=== PATIENT | female | born 1995 | race Caucasian/White ===

== ENCOUNTER 2025-06-02 09:48 | Outpatient (CLI) | payer OTHER ==
[2025-06-02 11:18] LABS: BASO % 0.2 % (0.1-1.2); EOS # 0.17 (0.04-0.54); EOS % 3.4 % (0.7-7.0); LYMPH # 1.55 (1.18-3.74); LYMPH % 31.3 % (19.3-53.1); MEAN PLATELET VOLUME 10.00 fl (9.4-12.4); MONO # 0.34 (0.24-0.82); MONO % 6.9 % (4.7-12.5); NEUT # 2.89 (1.56-6.13); NEUT % 58.2 % (34.0-71.1); RED CELL DISTRIBUTION WIDTH 12.6 % (11.6-14.4)
[2025-06-02 11:59] LABS: URINE APPEARANCE Clear; URINE BILIRRUBIN Negative (NEGATIVE); URINE BLOOD Negative; URINE COLOR Yellow; URINE GLUCOSE Negative (NEGATIVE); URINE KETONE Negative (NEGATIVE); URINE LEUKOCYTE Negative; URINE NITRATE Negative; URINE PROTEIN Negative (NEGATIVE); URINE UROBILINOGEN 1.0 E.U./dl
[2025-06-02 12:02] LABS: URINE BACTERIA 128.3 uL (0.0-1933); URINE EPITHELIAL CELLS 2.9 uL (0.0-38.8)
[2025-06-02 12:10] LABS: ALT/SGPT 28.0 U/L (12-78); AST/SGOT 12.0 U/L (15-37); BILIRUBIN TOTAL 0.6 mg/dL (0.3-1.2); BUN CREA RATIO 21.0 (7.0-25.0); CHOL HDL RATIO 1.9 (0-5.0); CREATININE SERUM 0.56 mg/dL (0.55-1.02); GFR 127.99; GLOBULINA 3.0 G/DL (2.4-3.5); GLUCOSE FASTING 68.0 mg/dL (65-100); HDL 74.0 mg/dl (40-60); LDL 61.0 mg/dl (0-130); OSMOLALITY SERUM 283.0 MOSM/KG (275-295); T4 FREE 1.13 NG/ML (0.76-1.46); TSH 1.73 uIU/mL (0.358-3.74); VLDL 7.0 (0-39)
[2025-06-02 12:27] LABS: URINE CAST 0.00 uL (0.0-1.40); URINE RBC 1.4 uL (0.0-20.8); URINE WBC 1.0 uL (0.0-23.2)
[2025-06-03 07:11] LABS: HSV I IGG TYPE SPECIFIC Reactive (Non Reactive); hav igm Negative (Negative); hep b c Negative (Negative); hep b s ag Negative (Negative)
[2025-06-03 09:08] LABS: CA 125 7.7 U/mL (0.0-38.1); CA 19-9 < 2 U/mL (0-35)
[2025-06-03 19:11] LABS: chla t Negative (Negative); neiss Negative (Negative)
== END 2025-06-02 10:00 | disposition home or self-care (01) ==
LOC: LAB 09:48
DX: D50.8 Other iron deficiency anemias (principal); N39.0 Urinary tract infection, site not specified; E03.8 Other specified hypothyroidism; E55.9 Vitamin D deficiency, unspecified; E78.01 Familial hypercholesterolemia; A63.8 Other specified predominantly sexually transmitted diseases; B17.9 Acute viral hepatitis, unspecified

== ENCOUNTER 2025-07-25 17:43 | Emergency (ER) | payer OTHER ==
[~2025-07-25] VITALS: Ht 160 cm; Wt 68.0 kg
[2025-07-25] MEDS ORDERED: MOUNJARO2.5 MG/0.5 (18:55)
== END 2025-07-25 20:14 | disposition home or self-care (01) ==
LOC: ER 17:43
DX: L92.8 Other granulomatous disorders of the skin and subcutaneous tissue (principal); Z87.09 Personal history of other diseases of the respiratory system

== ENCOUNTER → 2025-11-07 | Emergency (ER) | payer OTHER ==
[~2025-11-07] VITALS: Ht 160 cm; Wt 77.6 kg
[~2025-11-07] MED LIST: DICLOFENAC SODI50 MG PO; KETOROLAC TROMETHAMINE 30 MG VIAL IM ONE; KETOROLAC TROMETHAMINE 30 MG VIAL ONE; MOUNJARO2.5 MG/0.5; NORFLEX100MG PO; ORPHENADRINE CITRATE 30 MG/ML AMPUL IM ONE; ORPHENADRINE CITRATE 30 MG/ML AMPUL ONE
== END ==
LOC: ER 17:39
DX: M54.59 Other low back pain (principal)

== ENCOUNTER 2025-11-19 22:03 | Emergency (ER) | payer OTHER ==
[~2025-11-19] VITALS: Ht 157.5 cm; Wt 77.6 kg
[~2025-11-19 22:03] MED LIST changes: -KETOROLAC TROMETHAMINE 30 MG VIAL IM ONE; -KETOROLAC TROMETHAMINE 30 MG VIAL ONE; -ORPHENADRINE CITRATE 30 MG/ML AMPUL IM ONE; -ORPHENADRINE CITRATE 30 MG/ML AMPUL ONE
[2025-11-19 22:42] VITALS: BP 136/86; O2SAT 100
[2025-11-20] MEDS ORDERED: ORPHENADRINE CITRATE 30 MG/ML AMPUL IM STA (00:10)
[2025-11-20] MEDS ORDERED: DEXAMETHASONE SODIUM PHOSPHATE 4 MG/ML VIAL IM STA (00:10)
[2025-11-20] MEDS ORDERED: IBU600 MG PO (00:12)
[2025-11-20] MEDS ORDERED: KETOROLAC TROMETHAMINE 30 MG VIAL IM ONE (00:15)
[2025-11-20] MEDS ORDERED: KETOROLAC TROMETHAMINE 30 MG VIAL ONE (00:31)
[2025-11-20] MEDS ORDERED: ORPHENADRINE CITRATE 30 MG/ML AMPUL ONE (00:31)
== END 2025-11-20 00:52 | disposition home or self-care (01) ==
LOC: ER 22:03
DX: S93.492A Sprain of other ligament of left ankle, initial encounter (principal); X50.1XXA Overexertion from prolonged static or awkward postures, initial encounter; Y93.89 Activity, other specified; Y92.89 Other specified places as the place of occurrence of the external cause; Y99.8 Other external cause status